=== PATIENT | female | born 1985 ===

== ENCOUNTER 2021-05-07 16:12 | Emergency (ER) | payer BC ==
[2021-05-07] MEDS ORDERED: Sodium Chloride 0.9% 10 ML Syringe FLUSH PRN (16:52)
[2021-05-07] MEDS ORDERED: Dextrose 5%-0.9% NaCl 1,000 ML IV SCH (17:00)
[2021-05-07 17:45] LABS: CORONAVIRUS COVID-19 NAA NEGATIVE (NEGATIVE)
[2021-05-07 18:01] LABS: ACETAMINOPHEN 0 ug/mL (10-30)
[2021-05-07] MEDS ORDERED: Sodium Chloride 0.9% 1,000 ML IV ONE ×2 (18:18→20:53)
[2021-05-07] MEDS ORDERED: levETIRAcetam 500 MG Tab PO STA (18:48)
[2021-05-07] MEDS ORDERED: lamoTRIgine 100 MG Tab PO ONE ×2 (18:48→21:53)
[2021-05-07] MEDS ORDERED: Cefdinir 300 MG Cap PO ONE ×2 (20:52→21:53)
[2021-05-07] MEDS ORDERED: Ondansetron 4 MG Tab.DIS PO ONE (21:53)
[2021-05-07] MEDS ORDERED: levETIRAcetam Soln 500 MG/5 ML Cup PO ONE (21:53)
[2021-05-07] MEDS ORDERED: LORazepam 1 MG Tab PO ONE (21:53)
[2021-05-07] MEDS ORDERED: levETIRAcetam 500 MG Tab PO ONE (22:28)
== END 2021-05-07 22:46 ==
LOC: JD.ED 16:12
DX: F10.220 Alcohol dependence with intoxication, uncomplicated (principal); Z72.0 Tobacco use; Z20.822 Contact with and (suspected) exposure to COVID-19; Y90.5 Blood alcohol level of 100-119 mg/100 ml
CPT/HCPCS: 0240U; 36415; 80053; 80143; 80164; 80179; 80306; 80307; 81001; 81025; 83735; 84443; 85025; 85379; 87086; 93005; 99285; A9270; J7030; J7042; 93010